=== PATIENT | male | born 1955 | race African-American/Black ===

== ENCOUNTER 2018-02-15 12:01 | Inpatient (IN) | payer OTHER ==
[2018-02-15 13:22] VITALS: BMI 23.3
--- NOTE | 2018-02-15 15:29 | HP ---
CIWA Score - CIWA Score Nausea/Vomitin Muscle Tremors: 3 Anxiety: 3 Agitation: 3 Paroxysmal Sweats: 1-Minimal Palms Moist Orientation: 0-Oriented Tacttile Disturbances: 1-Very Mild Itch/Numbness Auditory Disturbances: 1-Very Mild Visual Disturbances: 1-Very Mild Sensitivity Headache: 2-Mild CIWA-Ar Total Score: 18 Admission ROS BHS - HPI Chief Complaint: i need help to stop drinking alcohol and cocaine Allergies/Adverse Reactions: Allergies Allergy/AdvReac Type Severity Reaction Status Date / Time No Known Allergies Allergy Verified 02/15/18 15:20 History of Present Illness: this 63 years old male with alcohol and cocaine dependence seeking detox, withdrawal symptom,last detox 09/2011 [facility] completed hepatitis c treated hypertension nicotine dependence weight loss anxiety,depression,insomnia longest period of sobriety 10 years - Ebola screening Have you traveled outside of the country in the last 21 days: No Have you had contact with anyone from an Ebola affected area: No Have you been sick,other than usual withdrawal symptoms: No Do you have a fever: No - Review of Systems Constitutional: Loss of Appetite, Malaise, Night Sweats, Changes in sleep, Weakness, Unintentional Wgt. Loss EENT: reports: Nose Congestion Respiratory: reports: No Symptoms reported Cardiac: reports: No Symptoms Reported GI: reports: Nausea, Vomiting, Abdominal cramping : reports: No Symptoms Reported Musculoskeletal: reports: Back Pain, Muscle Pain, Other (s/p left hi replacemeent) Integumentary: reports: Dryness Neuro: reports: Headache, Tremors Endocrine: reports: No Symptoms Reported Hematology: reports: No Symptoms Reported Psychiatric: reports: No Sypmtoms Reported, Judgement Intact, Mood/Affect Appropiate, Anxious, Depressed Patient History - Patient Medical History Hx Anemia: No Hx Asthma: No Hx Chronic Obstructive Pulmonary Disease (COPD): No Hx Cancer: No Hx Cardiac Disorders: No Hx Congestive Heart Failure: No Hx Hypertension: Yes (on med) Hx Hypercholesterolemia: No Hx Pacemaker: No HX Cerebrovascular Accident: No Hx Seizures: No Hx Dementia: No Hx Diabetes: No Hx Gastrointestinal Disorders: No Hx Liver Disease: No Hx Genitourinary Disorders: No Hx Sexually Transmitted Disorders: No Hx Renal Disease (ESRD): No Hx Thyroid Disease: No Hx Human Immunodeficiency Virus (HIV): No (last 2012) Hx Hepatitis C: Yes (treated) Hx Depression: Yes (anxiety) Hx Suicide Attempt: No Hx Bipolar Disorder: No Hx Schizophrenia: No Other Medical History: no suicidal,no homicidal - Patient Surgical History Hx Orthopedic Surgery: Yes (s/p left hip replacement in 2016) Other Surgical History: s/p surgery of right eye 2010 - PPD History Previous Implant?: Yes Documented Results: Negative w/o proof Implanted On Prior [facility] Admission?: No PPD to be Administered?: Yes - Smoking Cessation Smoking history: Current every day smoker Have you smoked in the past 12 months: Yes Aproximately how many cigarettes per day: 5 Cigars Per Day: 0 Hx Chewing Tobacco Use: No Initiated information on smoking cessation: Yes 'Breaking Loose' booklet given: 02/15/18 - Substance & Tx. History Hx Alcohol Use: Yes Hx Substance Use: No Substance Use Type: Alcohol, Cocaine Hx Substance Use Treatment: Yes ([facility] 09/2011) - Substances Abused Alcohol Route: Oral Frequency: Daily Amount used: 2 PINTS RUM Age of first use: 43 Date of Last Use: 02/15/18 Crack Route: Smoking Frequency: Daily Amount used: 3 GRAMS Age of first use: 50 Date of Last Use: 02/14/18 Family Disease History - Family Disease History Family Disease History: Other: Father (alcohol,), Mother (cva ) Admission Physical Exam S - Vital Signs Vital Signs: Vital Signs - 24 hr 02/15/18 13:17 Temperature 97.9 F Pulse Rate 82 Respiratory 20 Rate Blood Pressure 151/104 - Physical General Appearance: Yes: Moderate Distress, Tremorous, Irritable, Sweating, Anxious HEENTM: Yes: Normal ENT Inspection, TRUE, Pharynx Normal Respiratory: Yes: Lungs Clear, Normal Breath Sounds, No Respiratory Distress Neck: Yes: Within Normal Limits, Supple, Trachea in good position Breast: Yes: Within Normal Limits Cardiology: Yes: Regular Rhythm, Regular Rate, S1, S2 Abdominal: Yes: Within Normal Limits, Normal Bowel Sounds, Non Tender, Soft Genitourinary: Yes: Within Normal Limits Back: Yes: Muscle Spasm Musculoskeletal: Yes: Back pain, Muscle Pain Extremities: Yes: Tremors 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 NML intact, Fully Oriented, Alert, Motor Strength 5/5 Integumentary: Yes: Dry Lymphatic: Yes: Within Normal Limits - Diagnostic (1) Alcohol dependence with uncomplicated withdrawal Current Visit: Yes Status: Acute (2) Cocaine dependence Current Visit: Yes Status: Acute (3) Weight loss Current Visit: Yes Status: Acute (4) Anxiety and depression Current Visit: Yes Status: Acute (5) Insomnia Current Visit: Yes Status: Acute (6) Nicotine dependence Current Visit: Yes Status: Acute (7) Status post left hip replacement Current Visit: Yes Status: Acute Cleared for Admission [facility] - Detox or Rehab [facility] Level of Care: Medically Managed Detox Regimen/Protocol: Librium [facility] Breath Alcohol Content Breath Alcohol Content: 0.097 Urine Drug Screen - Results Drug Screen Negative: No Urine Drug Screen Results: THC-Marijuana, TARYN-Cocaine
[2018-02-15] MEDS ORDERED: MAG HYDROX/AL HYDROX/SIMETH 30 ML UNIT-DOSE CUP PO PRN (15:46)
[2018-02-15] MEDS ORDERED: IBUPROFEN 400 MG TABLET (FP) PO PRN (15:46)
[2018-02-15] MEDS ORDERED: MAGNESIUM CITRATE 300 ML BOTTLE PO PRN (15:46)
[2018-02-15] MEDS ORDERED: LOPERAMIDE HCL 2 MG CAPSULE PO PRN (15:46)
[2018-02-15] MEDS ORDERED: MENTHOL/PHENOL 1 EACH UD MM PRN (15:46)
[2018-02-15] MEDS ORDERED: MAGNESIUM HYDROX 2400MG/30ML ORAL SUSPENSION 30 ML CUP PO PRN (15:46)
[2018-02-15] MEDS ORDERED: guaiFENesin/D-METHORPHAN HB 10 ML UNIT-DOSE CUPS PO PRN (15:46)
[2018-02-15] MEDS ORDERED: NICOTINE POLACRILEX 2 MG GUM BUC PRN (15:46)
[2018-02-15] MEDS ORDERED: hydrOXYzine PAMOATE 25 MG CAPSULE (FP) PO PRN (15:46)
[2018-02-15] MEDS ORDERED: P-EPHED 60MG/TRIPROLIDI 2.5MG TABLET PO PRN (15:46)
[2018-02-15] MEDS ORDERED: ACETAMINOPHEN 325 MG TABLET (FP) PO PRN (16:22)
[2018-02-15] MEDS ORDERED: chlordiazePOXIDE HCL 25 MG CAPSULE PO PRN (16:23)
[2018-02-15] MEDS: LISINOPRIL 10 MG TABLET (FP) PO SCH (17:26)
[2018-02-15] MEDS: chlordiazePOXIDE HCL 25 MG CAPSULE PO SCH ×2 (17:26→22:22)
--- NOTE | 2018-02-15 18:07 | CONSULT ---
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 Substance Abuse History: Confirmed by patient in this interview.Details in current [facility] report : Smoking history: Current every day smoker. Have you smoked in the past 12 months: Yes. Aproximately how many cigarettes per day: 5. Cigars Per Day: 0. Hx Chewing Tobacco Use: No. Initiated information on smoking cessation: Yes. 'Breaking Loose' booklet given: 02/15/18. - Substance & Tx. History. Hx Alcohol Use: Yes. Hx Substance Use: No. Substance Use Type : Alcohol, Cocaine. Hx Substance Use Treatment: Yes ([facility] 09/2011). - Substances Abused. Alcohol. Route: Oral. Frequency: Daily. Amount used: 2 PINTS RUM. Age of first use: 43. Date of Last Use: 02/15/18. Crack. Route: Smoking. Frequency: Daily. Amount used: 3 GRAMS. Age of first use: 50. Date of Last Use: 02/14/18 Medical History: Hepatitis C,hypertension,left hip replacement (2015) and a history of eye surgery for retinal detachment (right eye) in 2010. Psychiatric History: Patient denies. Physical/Sexual Abuse/Trauma History: Patient denies. Additional Comment: Urine Drug Screen Results: THC-Marijuana, TARYN-Cocaine.Noted. Mental Status Exam - Mental Status Exam Alert and Oriented to: Time, Place, Person Cognitive Function: Good Patient Appearance: Well Groomed Mood: Hopeful, Euthymic Affect: Appropriate, Normal Range Patient Behavior: Fatigued, Appropriate, Cooperative Speech Pattern: Clear, Appropriate Voice Loudness: Normal Thought Process: Intact, Goal Oriented Thought Disorder: Not Present Hallucinations: Denies Suicidal Ideation: Denies Homicidal Ideation: Denies Insight/Judgement: Fair Sleep: Poorly, Difficulty falling asleep Appetite: Good Muscle strength/Tone: Normal Gait/Station: Normal Psychiatric Findings - Problem List ([place] 1, 2,3) (1) Alcohol dependence with uncomplicated withdrawal Current Visit: Yes Status: Acute (2) Cocaine dependence Current Visit: Yes Status: Acute (3) Insomnia Current Visit: Yes Status: Acute (4) Nicotine dependence Current Visit: Yes Status: Acute - Initial Treatment Plan Initial Treatment Plan: Psychoeducation.Sleep hygiene.Detoxification in progress.Ambien 5 mg po hs prn (patient's request).Patient is made aware of the risk of parasomnias (sleep-walking).Mr Key agrees with this careplan.Observation.
[2018-02-15] MEDS ORDERED: MELATONIN 5 MG TABLETS PO PRN (22:00)
[2018-02-15] MEDS: THIAMINE HCL 100 MG TABLET (FP) PO SCH (22:22)
[2018-02-16] MEDS: chlordiazePOXIDE HCL 25 MG CAPSULE PO SCH ×4 (05:15→22:22)
--- NOTE | 2018-02-16 09:22 | EKG ---
Test Reason : Blood Pressure : / mmHG Vent. Rate : 070 BPM Atrial Rate : 070 BPM P-R Int : 146 ms QRS Dur : 086 ms QT Int : 406 ms P-R-T Axes : 072 041 060 degrees QTc Int : 438 ms NORMAL SINUS RHYTHM POSSIBLE LEFT ATRIAL ENLARGEMENT LEFT VENTRICULAR HYPERTROPHY ABNORMAL ECG NO PREVIOUS ECGS AVAILABLE Confirmed by ANUP ROSA, CLYDE ([id number]) on 02/16/2018 9:22:17 AM Referred By: Confirmed By:CLYDE HEBERT MD
[2018-02-16 10:09] LABS: URINE APPEARANCE CLEAR; URINE BILIRUBIN NEGATIVE (<2.0 mg/dL); URINE COLOR YELLOW; URINE GLUCOSE (UA) NEGATIVE (NEGATIVE); URINE KETONE NEGATIVE (NEGATIVE); URINE LEUK ESTERASE NEGATIVE (NEGATIVE); URINE NITRITE NEGATIVE (NEGATIVE); URINE PROTEIN NEGATIVE (NEGATIVE)
[2018-02-16] MEDS: PRENATAL VITAMINS W/ FOLIC ACID TABLET (FP) PO SCH (10:13)
[2018-02-16] MEDS: LISINOPRIL 10 MG TABLET (FP) PO SCH (10:13)
[2018-02-16 10:16] LABS: HEMATOCRIT 37.7 % (35.4-49); MCH 34.8 pg (25.7-33.7); MCHC 34.6 g/dl (32.0-35.9); MEAN CELL VOLUME 100.6 fl (80-96); MEAN PLT VOLUME 9.2 fl (7.5-11.1); PLATELET COUNT 202 K/MM3 (134-434); RBC 3.74 M/mm3 (4.00-5.60); RDW 13.9 % (11.9-15.9); WHITE BLOOD COUNT 3.6 K/mm3 (4.0-10.0)
[2018-02-16 10:37] LABS: CHLORIDE 105 mmol/L (98-107); POTASSIUM 4.3 mmol/L (3.5-5.1); SODIUM 141 mmol/L (136-145)
[2018-02-16 10:57] LABS: ALBUMIN 3.7 g/dl (3.4-5.0); ALK PHOS 67 U/L (45-117); ANION GAP 8 (8-16); BILIRUBIN,TOTAL 0.8 mg/dL (0.2-1.0); BLOOD UREA NITROGEN 16 mg/dL (7-18); CALCIUM 9.3 mg/dL (8.5-10.1); CO2 28 mmol/L (21-32); CREATININE 1.2 mg/dL (0.7-1.3); GLUCOSE,RANDOM 98 mg/dL (74-106); SGOT/AST 44 U/L (15-37); SGPT/ALT 43 U/L (12-78); TOT PROT 7.2 g/dl (6.4-8.2)
--- NOTE | 2018-02-16 16:06 | PN ---
[facility] CIWA - CIWA Score Nausea/Vomitin-No Nausea/No Vomiting Muscle Tremors: 4-Moderate,w/Arms Extend Anxiety: 4-Mod. Anxious/Guarded Agitation: 3 Paroxysmal Sweats: 3 Orientation: 0-Oriented Tacttile Disturbances: 2-Mild Itch/Numbness/Burn Auditory Disturbances: 2-Mild Harshness/Frighten Visual Disturbances: 0-None Headache: 0-None Present CIWA-Ar Total Score: 18 S Progress Note (SOAP) Subjective: Fatigue, Sweating, Tremors, Constipation. Objective: PATIENT A & O X 3, OBSERVED AMBULATING ON UNIT. NO ACUTE DISTRESS. 02/16/18 16:05 Vital Signs Temperature 97.4 F L 02/16/18 10:43 Pulse Rate 93 H 02/16/18 10:43 Respiratory Rate 18 02/16/18 10:43 Blood Pressure 130/80 02/16/18 10:43 O2 Sat by Pulse Oximetry (%) Laboratory Tests 02/16/18 02/16/18 02/16/18 08:00 08:00 08:00 WBC 3.6 L RBC 3.74 L Hgb 13.0 Hct 37.7 MCV 100.6 H MCH 34.8 H MCHC 34.6 RDW 13.9 Plt Count 202 MPV 9.2 Sodium 141 Potassium 4.3 Chloride 105 Carbon Dioxide 28 Anion Gap 8 BUN 16 Creatinine 1.2 Creat Clearance w eGFR > 60 Random Glucose 98 Calcium 9.3 Total Bilirubin 0.8 AST 44 H ALT 43 Alkaline Phosphatase 67 Total Protein 7.2 Albumin 3.7 Urine Color Urine Appearance Urine pH Ur Specific [place] Urine Protein Urine Glucose (UA) Urine Ketones Urine Blood Urine Nitrite Urine Bilirubin Urine Urobilinogen Ur Leukocyte Esterase RPR Titer HIV 1&2 Antibody Screen Negative HIV P24 Antigen Negative 02/16/18 02/16/18 08:00 09:00 WBC RBC Hgb Hct MCV MCH MCHC RDW Plt Count MPV Sodium Potassium Chloride Carbon Dioxide Anion Gap BUN Creatinine Creat Clearance w eGFR Random Glucose Calcium Total Bilirubin AST ALT Alkaline Phosphatase Total Protein Albumin Urine Color Yellow Urine Appearance Clear Urine pH 6.0 Ur Specific [place] 1.012 Urine Protein Negative Urine Glucose (UA) Negative Urine Ketones Negative Urine Blood Negative Urine Nitrite Negative Urine Bilirubin Negative Urine Urobilinogen 2.0 Ur Leukocyte Esterase Negative RPR Titer Nonreactive HIV 1&2 Antibody Screen HIV P24 Antigen LABS NOTED. Assessment: 02/16/18 16:05 WITHDRAWAL SYMPTOMS. Plan: CONTINUE DETOX. INCREASE DAILY PO FLUID INTAKE.
[2018-02-16] MEDS: THIAMINE HCL 100 MG TABLET (FP) PO SCH (22:22)
[2018-02-17] MEDS: chlordiazePOXIDE HCL 25 MG CAPSULE PO SCH ×2 (05:25→10:18)
[2018-02-17] MEDS: PRENATAL VITAMINS W/ FOLIC ACID TABLET (FP) PO SCH (10:18)
[2018-02-17] MEDS: LISINOPRIL 10 MG TABLET (FP) PO SCH (10:18)
--- NOTE | 2018-02-17 13:01 | PN ---
S CIWA - CIWA Score Nausea/Vomitin-No Nausea/No Vomiting Muscle Tremors: 3 Anxiety: 4-Mod. Anxious/Guarded Agitation: 3 Paroxysmal Sweats: 1-Minimal Palms Moist Orientation: 0-Oriented Tacttile Disturbances: 0-None Auditory Disturbances: 0-None Visual Disturbances: 0-None Headache: 0-None Present CIWA-Ar Total Score: 11 BHS Progress Note (SOAP) Subjective: REPORTS DETOX PROCEEDING WELL. ALERT O X 3. NAD. Objective: 02/17/18 13:01 Vital Signs 02/17/18 02/17/18 06:13 10:30 Temperature 96 F L 96.8 F L Pulse Rate 51 L 56 L Respiratory 18 18 Rate Blood Pressure 158/95 161/57 Laboratory Tests 02/16/18 02/16/18 02/16/18 08:00 08:00 08:00 WBC 3.6 L RBC 3.74 L Hgb 13.0 Hct 37.7 MCV 100.6 H MCH 34.8 H MCHC 34.6 RDW 13.9 Plt Count 202 MPV 9.2 Sodium 141 Potassium 4.3 Chloride 105 Carbon Dioxide 28 Anion Gap 8 BUN 16 Creatinine 1.2 Creat Clearance w eGFR > 60 Random Glucose 98 Calcium 9.3 Total Bilirubin 0.8 AST 44 H ALT 43 Alkaline Phosphatase 67 Total Protein 7.2 Albumin 3.7 Urine Color Urine Appearance Urine pH Ur Specific [place] Urine Protein Urine Glucose (UA) Urine Ketones Urine Blood Urine Nitrite Urine Bilirubin Urine Urobilinogen Ur Leukocyte Esterase RPR Titer HIV 1&2 Antibody Screen Negative HIV P24 Antigen Negative 02/16/18 02/16/18 08:00 09:00 WBC RBC Hgb Hct MCV MCH MCHC RDW Plt Count MPV Sodium Potassium Chloride Carbon Dioxide Anion Gap BUN Creatinine Creat Clearance w eGFR Random Glucose Calcium Total Bilirubin AST ALT Alkaline Phosphatase Total Protein Albumin Urine Color Yellow Urine Appearance Clear Urine pH 6.0 Ur Specific [place] 1.012 Urine Protein Negative Urine Glucose (UA) Negative Urine Ketones Negative Urine Blood Negative Urine Nitrite Negative Urine Bilirubin Negative Urine Urobilinogen 2.0 Ur Leukocyte Esterase Negative RPR Titer Nonreactive HIV 1&2 Antibody Screen HIV P24 Antigen Assessment: 02/17/18 13:01 WITHDRAWAL SX Plan: CONTINUE DETOX
[2018-02-17] MEDS: chlordiazePOXIDE 5 MG CAPSULE PO SCH ×2 (17:43→22:10)
[2018-02-17] MEDS: THIAMINE HCL 100 MG TABLET (FP) PO SCH (22:10)
[2018-02-18] MEDS: chlordiazePOXIDE 5 MG CAPSULE PO SCH ×2 (04:53→10:10)
[2018-02-18] MEDS: PRENATAL VITAMINS W/ FOLIC ACID TABLET (FP) PO SCH (10:10)
[2018-02-18] MEDS: LISINOPRIL 10 MG TABLET (FP) PO SCH (10:11)
--- NOTE | 2018-02-18 12:14 | PN ---
BHS Progress Note (SOAP) Subjective: PT REPORTS DETOX IS PROCEEDING WELL. ALERT O X 3. OOB IN NAD. Objective: 02/18/18 12:13 Vital Signs 02/18/18 02/18/18 06:06 09:02 Temperature 95.2 F L 95.1 F L Pulse Rate 62 73 Respiratory 18 18 Rate Blood Pressure 142/91 152/89 Laboratory Tests 02/16/18 02/16/18 02/16/18 08:00 08:00 08:00 WBC 3.6 L RBC 3.74 L Hgb 13.0 Hct 37.7 MCV 100.6 H MCH 34.8 H MCHC 34.6 RDW 13.9 Plt Count 202 MPV 9.2 Sodium 141 Potassium 4.3 Chloride 105 Carbon Dioxide 28 Anion Gap 8 BUN 16 Creatinine 1.2 Creat Clearance w eGFR > 60 Random Glucose 98 Calcium 9.3 Total Bilirubin 0.8 AST 44 H ALT 43 Alkaline Phosphatase 67 Total Protein 7.2 Albumin 3.7 Urine Color Urine Appearance Urine pH Ur Specific [place] Urine Protein Urine Glucose (UA) Urine Ketones Urine Blood Urine Nitrite Urine Bilirubin Urine Urobilinogen Ur Leukocyte Esterase RPR Titer HIV 1&2 Antibody Screen Negative HIV P24 Antigen Negative 02/16/18 02/16/18 08:00 09:00 WBC RBC Hgb Hct MCV MCH MCHC RDW Plt Count MPV Sodium Potassium Chloride Carbon Dioxide Anion Gap BUN Creatinine Creat Clearance w eGFR Random Glucose Calcium Total Bilirubin AST ALT Alkaline Phosphatase Total Protein Albumin Urine Color Yellow Urine Appearance Clear Urine pH 6.0 Ur Specific [place] 1.012 Urine Protein Negative Urine Glucose (UA) Negative Urine Ketones Negative Urine Blood Negative Urine Nitrite Negative Urine Bilirubin Negative Urine Urobilinogen 2.0 Ur Leukocyte Esterase Negative RPR Titer Nonreactive HIV 1&2 Antibody Screen HIV P24 Antigen Assessment: 02/18/18 12:13 WITHDRAWAL SX RESOLVING Plan: CONTINUE DETOX
[2018-02-18] MEDS: chlordiazePOXIDE HCL 10 MG CAPSULE PO SCH ×2 (17:49→22:15)
[2018-02-18] MEDS ORDERED: LISINOPRIL 10 MG TABLET (FP) PO SCH (22:00)
[2018-02-18] MEDS: THIAMINE HCL 100 MG TABLET (FP) PO SCH (22:15)
[2018-02-19] MEDS: chlordiazePOXIDE HCL 10 MG CAPSULE PO SCH (05:55)
[2018-02-19 06:12] VITALS: BP 107/79; PULSE 70; TEMP 97.2
--- NOTE | 2018-02-19 09:50 | PN ---
BHS Progress Note (SOAP) Subjective: DETOX COMPLETED. ALERT O X 3. NAD. PT STATES HE IS GOING BACK TO HIS HOME. Objective: 02/19/18 09:50 Vital Signs 02/19/18 06:12 Temperature 97.2 F L Pulse Rate 70 Respiratory 18 Rate Blood Pressure 107/79 Laboratory Tests 02/16/18 02/16/18 02/16/18 08:00 08:00 08:00 WBC 3.6 L RBC 3.74 L Hgb 13.0 Hct 37.7 MCV 100.6 H MCH 34.8 H MCHC 34.6 RDW 13.9 Plt Count 202 MPV 9.2 Sodium 141 Potassium 4.3 Chloride 105 Carbon Dioxide 28 Anion Gap 8 BUN 16 Creatinine 1.2 Creat Clearance w eGFR > 60 Random Glucose 98 Calcium 9.3 Total Bilirubin 0.8 AST 44 H ALT 43 Alkaline Phosphatase 67 Total Protein 7.2 Albumin 3.7 Urine Color Urine Appearance Urine pH Ur Specific [place] Urine Protein Urine Glucose (UA) Urine Ketones Urine Blood Urine Nitrite Urine Bilirubin Urine Urobilinogen Ur Leukocyte Esterase RPR Titer HIV 1&2 Antibody Screen Negative HIV P24 Antigen Negative 02/16/18 02/16/18 08:00 09:00 WBC RBC Hgb Hct MCV MCH MCHC RDW Plt Count MPV Sodium Potassium Chloride Carbon Dioxide Anion Gap BUN Creatinine Creat Clearance w eGFR Random Glucose Calcium Total Bilirubin AST ALT Alkaline Phosphatase Total Protein Albumin Urine Color Yellow Urine Appearance Clear Urine pH 6.0 Ur Specific [place] 1.012 Urine Protein Negative Urine Glucose (UA) Negative Urine Ketones Negative Urine Blood Negative Urine Nitrite Negative Urine Bilirubin Negative Urine Urobilinogen 2.0 Ur Leukocyte Esterase Negative RPR Titer Nonreactive HIV 1&2 Antibody Screen HIV P24 Antigen Assessment: 02/19/18 09:50 MEDICALLY STABLE Plan: D/C PT TODAY FOLLOW UP WITH PMD DR. MERARY LEE FOR MEDICAL MANAGEMENT NEEDED.
--- NOTE | 2018-02-19 16:02 | DS ---
[facility] Detox Discharge Summary Admission Date: 02/15/18 Discharge Date: 02/19/18 - History Present History: Alcohol Dependence, Cocaine Dependence Additional Comments: DETOX COMPLETED. ALERT O X 3. NAD. PT REPORTS HIS PMD IS DR. MERARY LEE WHO HE WILL F/U WITH FOR MEDICAL MANAGEMENT NEEDED. PT STATES HE HAS OWN MEDS AT HOME. Pertinent Past History: PLEASED SEE DX BELOW - Physical Exam Results Vital Signs: Vital Signs Temperature 97.2 F L 02/19/18 06:12 Pulse Rate 70 02/19/18 06:12 Respiratory Rate 02/19/18 06:12 Blood Pressure 107/79 02/19/18 06:12 O2 Sat by Pulse Oximetry (%) Pertinent Admission Physical Exam Findings: WITHDRAWAL SX Laboratory Tests 02/16/18 02/16/18 02/16/18 08:00 08:00 08:00 WBC 3.6 L RBC 3.74 L Hgb 13.0 Hct 37.7 MCV 100.6 H MCH 34.8 H MCHC 34.6 RDW 13.9 Plt Count 202 MPV 9.2 Sodium 141 Potassium 4.3 Chloride 105 Carbon Dioxide 28 Anion Gap 8 BUN 16 Creatinine 1.2 Creat Clearance w eGFR > 60 Random Glucose 98 Calcium 9.3 Total Bilirubin 0.8 AST 44 H ALT 43 Alkaline Phosphatase 67 Total Protein 7.2 Albumin 3.7 Urine Color Urine Appearance Urine pH Ur Specific [place] Urine Protein Urine Glucose (UA) Urine Ketones Urine Blood Urine Nitrite Urine Bilirubin Urine Urobilinogen Ur Leukocyte Esterase RPR Titer HIV 1&2 Antibody Screen Negative HIV P24 Antigen Negative 02/16/18 02/16/18 08:00 09:00 WBC RBC Hgb Hct MCV MCH MCHC RDW Plt Count MPV Sodium Potassium Chloride Carbon Dioxide Anion Gap BUN Creatinine Creat Clearance w eGFR Random Glucose Calcium Total Bilirubin AST ALT Alkaline Phosphatase Total Protein Albumin Urine Color Yellow Urine Appearance Clear Urine pH 6.0 Ur Specific [place] 1.012 Urine Protein Negative Urine Glucose (UA) Negative Urine Ketones Negative Urine Blood Negative Urine Nitrite Negative Urine Bilirubin Negative Urine Urobilinogen 2.0 Ur Leukocyte Esterase Negative RPR Titer Nonreactive HIV 1&2 Antibody Screen HIV P24 Antigen - Treatment Hospital Course: Detox Protocol Followed, Detoxed Safely, Responded well, Discharged Condition Good - Medication Discharge Medications: Ambulatory Orders Lisinopril 20 mg PO DAILY 02/15/18 - Diagnosis (1) Alcohol dependence with uncomplicated withdrawal Status: Acute (2) Cocaine dependence Status: Acute Qualifiers: Substance use status: uncomplicated Qualified Code(s): F14.20 - Cocaine dependence, uncomplicated (3) Nicotine dependence Status: Acute Qualifiers: Nicotine product type: cigarettes Substance use status: in withdrawal Qualified Code(s): F17.213 - Nicotine dependence, cigarettes, with withdrawal (4) Status post left hip replacement Status: Acute (5) Weight loss Status: Acute - AMA Did Patient Leave Against Medical Advice: No
== END 2018-02-19 08:35 | disposition home or self-care (01) | DRG 897 ==
LOC: YASAS 12:01 → Y3N 14:45
PROVIDERS: ADMIT Internal Medicine; ATTEND Internal Medicine
PROC: HZ2ZZZZ Detoxification Services for Substance Abuse Treatment (ICD-10-PCS; principal; 2018-02-15)
DX: F10.230 Alcohol dependence with withdrawal, uncomplicated (principal); F14.20 Cocaine dependence, uncomplicated; F17.213 Nicotine dependence, cigarettes, with withdrawal; F41.8 Other specified anxiety disorders; I10 Essential (primary) hypertension; G47.00 Insomnia, unspecified; Z96.642 Presence of left artificial hip joint; Z87.898 Personal history of other specified conditions
CPT/HCPCS: 36415; 80053; 81003; 85027; 86593; 87389; 93005; 93010

== ENCOUNTER 2018-11-03 09:25 | Inpatient (IN) | payer OTHER ==
[2018-11-03 09:54] VITALS: BMI 23.8
--- NOTE | 2018-11-03 10:04 | HP ---
CIWA Score Nausea/Vomitin-Mild Nausea/No Vomiting Muscle Tremors: 3 Anxiety: 3 Agitation: 2 Paroxysmal Sweats: 2 Orientation: 2-Disoriented Date<2 days Tacttile Disturbances: 0-None Auditory Disturbances: 1-Very Mild Visual Disturbances: 1-Very Mild Sensitivity Headache: 2-Mild CIWA-Ar Total Score: 17 - Admission Criteria OASAS Guidelines: Admission for Medically Managed Detox: Requires at least one of the followin. CIWA greater than 12 2. Seizures within the past 24 hours 3. Delirium tremens within the past 24 hours 4. Hallucinations within the past 24 hours 5. Acute intervention needed for co occurring medical disorder 6. Acute intervention needed for co occurring psychiatric disorder 7. Severe withdrawal that cannot be handled at a lower level of care (continued vomiting, continued diarrhea, abnormal vital signs) requiring intravenous medication and/or fluids 8. Admission ROS S - [facility] Chief Complaint: WITHDRAWAL SYMPTOMS Allergies/Adverse Reactions: Allergies Allergy/AdvReac Type Severity Reaction Status Date / Time No Known Allergies Allergy Verified 11/03/18 09:59 History of Present Illness: 63 Y.O. MAN WITH AN EXTENSIVE HISTORY OF ALCOHOL DEPENDENCE IS HERE SEEKING DETOX. HE LAST COMPLETED DETOX HERE FROM 02/15/18-02/19/18. DOES NOT HAVE A SIGNIFICANT PERIOD OF SOBRIETY. Exam Limitations: No Limitations - Ebola screening Have you traveled outside of the country in the last 21 days: No (N) Have you had contact with anyone from an Ebola affected area: No Have you been sick,other than usual withdrawal symptoms: No Do you have a fever: No - Review of Systems Constitutional: Loss of Appetite, Unintentional Wgt. Loss EENT: reports: Blurred Vision Respiratory: reports: No Symptoms reported Cardiac: reports: Lightheadedness GI: reports: No Symptoms Reported : reports: No Symptoms Reported Musculoskeletal: reports: Joint Pain Integumentary: reports: No Symptoms Reported Neuro: reports: Tremors Endocrine: reports: No Symptoms Reported Hematology: reports: No Symptoms Reported Psychiatric: reports: Mood/Affect Appropiate Other Systems: Reviewed and Negative Patient History - Patient Medical History Hx Anemia: No Hx Asthma: No Hx Chronic Obstructive Pulmonary Disease (COPD): No Hx Cancer: No Hx Cardiac Disorders: No Hx Congestive Heart Failure: No Hx Hypertension: Yes (TAKES LISINOPRIL ) Hx Hypercholesterolemia: Yes (NOT ON MEDICATION ) Hx Pacemaker: No HX Cerebrovascular Accident: No Hx Seizures: No Hx Dementia: No Hx Diabetes: No Hx Gastrointestinal Disorders: No Hx Liver Disease: No Hx Genitourinary Disorders: No Hx Sexually Transmitted Disorders: No Hx Renal Disease (ESRD): No Hx Thyroid Disease: No Hx Human Immunodeficiency Virus (HIV): No (last 2012) Hx Hepatitis C: Yes (DID NOT COMPLETE [place] ) Hx Depression: Yes (ANXIETY ) Hx Suicide Attempt: No Hx Bipolar Disorder: No Hx Schizophrenia: No - Patient Surgical History Past Surgical History: Yes Hx Orthopedic Surgery: Yes (s/p left hip replacement in 2015) Other Surgical History: s/p surgery of right eye 2010 - PPD History Previous Implant?: Yes Documented Results: Negative w/proof Implanted On Prior R Admission?: Yes Date: 02/17/18 Results: 0 PPD to be Administered?: No - Reproductive History Patient is a Female of Child Bearing Age (11 -55 yrs old): No - Smoking Cessation Smoking history: Current every day smoker Have you smoked in the past 12 months: Yes Aproximately how many cigarettes per day: 6 Cigars Per Day: 0 Hx Chewing Tobacco Use: No Initiated information on smoking cessation: Yes 'Breaking Loose' booklet given: 11/03/18 - Substance & Tx. History Hx Alcohol Use: Yes Hx Substance Use: Yes Substance Use Type: Alcohol, Cocaine Hx Substance Use Treatment: Yes (DETOX: 02/2019) - Substances Abused Alcohol Route: Oral Frequency: Daily Amount used: 1 PINT BACARDI Age of first use: 15 Date of Last Use: 11/03/18 Cocaine Route: Smoking Frequency: Daily Amount used: $200 Age of first use: 30 Date of Last Use: 11/03/18 Family Disease History - Family Disease History Family Disease History: Other: Father (alcohol,), Mother (cva ) Admission Physical Exam [facility] - Vital Signs Vital Signs: Vital Signs - 24 hr 11/03/18 09:44 Temperature 97.9 F Pulse Rate 95 H Respiratory 18 Rate Blood Pressure 150/103 H - Physical General Appearance: Yes: Disheveled HEENTM: Yes: Normocephalic, Normal Voice, TRUE Respiratory: Yes: Chest Non-Tender, Lungs Clear, Normal Breath Sounds, No Respiratory Distress, No Accessory Muscle Use Neck: Yes: No masses,lesions,Nodules Breast: Yes: Within Normal Limits, Axillae without masses, Breasts Symetrical, No Discharge Cardiology: Yes: Regular Rhythm, Regular Rate Abdominal: Yes: Normal Bowel Sounds, Non Tender, Flat Genitourinary: Yes: Other Back: Yes: Normal Inspection Musculoskeletal: Yes: full range of Motion, Gait Steady, Pelvis Stable Extremities: Yes: Normal Capillary Refill, Normal Inspection, Normal Range of Motion, Non-Tender Neurological: Yes: Alert, Normal Mood/Affect, Normal Response Integumentary: Yes: Normal Color, Dry, Warm Lymphatic: Yes: Within Normal Limits - Diagnostic (1) Alcohol dependence with uncomplicated withdrawal Current Visit: Yes Status: Chronic (2) Cocaine dependence Current Visit: Yes Status: Chronic Qualifiers: Substance use status: uncomplicated Qualified Code(s): F14.20 - Cocaine dependence, uncomplicated (3) Nicotine dependence Current Visit: Yes Status: Chronic Qualifiers: Nicotine product type: cigarettes Substance use status: in withdrawal Qualified Code(s): F17.213 - Nicotine dependence, cigarettes, with withdrawal (4) Status post left hip replacement Current Visit: No Status: Acute (5) Weight loss Current Visit: Yes Status: Acute (6) Hypolipidemia Current Visit: Yes Status: Chronic (7) Hepatitis C Current Visit: Yes Status: Chronic Cleared for Admission [facility] - Detox or Rehab [facility] Level of Care: Medically Managed Detox Regimen/Protocol: Librium [facility] Breath Alcohol Content Breath Alcohol Content: 0.50 Urine Drug Screen - Results Drug Screen Negative: No Urine Drug Screen Results: THC-Marijuana, TARYN-Cocaine
[2018-11-03] MEDS ORDERED: hydrOXYzine PAMOATE 50 MG CAPSULE (FP) PO PRN (10:14)
[2018-11-03] MEDS ORDERED: chlordiazePOXIDE HCL 25 MG CAPSULE PO PRN (10:14)
[2018-11-03] MEDS ORDERED: MAGNESIUM HYDROX 2400MG/30ML ORAL SUSPENSION 30 ML CUP PO PRN (10:14)
[2018-11-03] MEDS ORDERED: LOPERAMIDE HCL 2 MG CAPSULE PO PRN (10:14)
[2018-11-03] MEDS ORDERED: MENTHOL/PHENOL 1 EACH UD MM PRN (10:14)
[2018-11-03] MEDS ORDERED: guaiFENesin/D-METHORPHAN HB 10 ML UNIT-DOSE CUPS PO PRN (10:14)
[2018-11-03] MEDS ORDERED: ACETAMINOPHEN 325 MG TABLET (FP) PO PRN (10:14)
[2018-11-03] MEDS ORDERED: P-EPHED 60MG/TRIPROLIDI 2.5MG TABLET PO PRN (10:14)
[2018-11-03] MEDS ORDERED: MAG HYDROX/AL HYDROX/SIMETH 30 ML UNIT-DOSE CUP PO PRN (10:14)
[2018-11-03] MEDS ORDERED: IBUPROFEN 400 MG TABLET (FP) PO PRN (10:14)
[2018-11-03] MEDS ORDERED: NICOTINE POLACRILEX 2 MG GUM BUC PRN (10:14)
[2018-11-03] MEDS ORDERED: chlordiazePOXIDE HCL 25 MG CAPSULE PO ONE (10:14)
[2018-11-03] MEDS ORDERED: MAGNESIUM CITRATE 300 ML BOTTLE PO PRN (10:14)
[2018-11-03] MEDS: chlordiazePOXIDE HCL 25 MG CAPSULE PO SCH ×3 (12:37→22:42)
[2018-11-03] MEDS: HYDROCHLOROTHIAZIDE 12.5 MG CAPSULE (FP) PO SCH (12:37)
[2018-11-03] MEDS: THIAMINE HCL 100 MG TABLET (FP) PO SCH (22:42)
[2018-11-04] MEDS: chlordiazePOXIDE HCL 25 MG CAPSULE PO SCH ×4 (06:11→22:16)
[2018-11-04 09:47] LABS: HEMATOCRIT 36.3 % (35.4-49); HEMOGLOBIN 12.8 GM/dL (11.7-16.9); MCH 35.4 pg (25.7-33.7); MCHC 35.4 g/dl (32.0-35.9); MEAN CELL VOLUME 100.2 fl (80-96); MEAN PLT VOLUME 9.2 fl (7.5-11.1); PLATELET COUNT 191 K/MM3 (134-434); RBC 3.62 M/mm3 (4.00-5.60); RDW 14.6 % (11.9-15.9); WHITE BLOOD COUNT 3.1 K/mm3 (4.0-10.0)
[2018-11-04] MEDS ORDERED: LISINOPRIL 20 MG TABLET (FP) PO SCH (10:00)
[2018-11-04 10:07] LABS: ALBUMIN 3.7 g/dl (3.4-5.0); ALK PHOS 70 U/L (45-117); ANION GAP 8 MMOL/L (8-16); BILIRUBIN,TOTAL 0.7 mg/dL (0.2-1); BLOOD UREA NITROGEN 16 mg/dL (7-18); CALCIUM 9.2 mg/dL (8.5-10.1); CHLORIDE 105 mmol/L (98-107); CO2 27 mmol/L (21-32); CREATININE 1.2 mg/dL (0.55-1.3); GLUCOSE,RANDOM 135 mg/dL (74-106); POTASSIUM 3.6 mmol/L (3.5-5.1); SGOT/AST 40 U/L (15-37); SGPT/ALT 48 U/L (13-61); SODIUM 140 mmol/L (136-145); TOT PROT 7.2 g/dl (6.4-8.2)
[2018-11-04] MEDS: PRENATAL VITAMINS W/ FOLIC ACID TABLET (FP) PO SCH (10:23)
[2018-11-04] MEDS: HYDROCHLOROTHIAZIDE 12.5 MG CAPSULE (FP) PO SCH (10:23)
[2018-11-04] MEDS: LISINOPRIL 20 MG TABLET (FP) PO SCH (10:23)
[2018-11-04] MEDS: NICOTINE 14 MG/24 HOURS TOPICAL PATCH TD SCH (10:24)
--- NOTE | 2018-11-04 10:50 | PN ---
[facility] CIWA - CIWA Score Nausea/Vomitin-Mild Nausea/No Vomiting Muscle Tremors: 4-Moderate,w/Arms Extend Anxiety: 3 Agitation: 3 Paroxysmal Sweats: 1-Minimal Palms Moist Orientation: 1-Uncertain about Date Tacttile Disturbances: 0-None Auditory Disturbances: 0-None Visual Disturbances: 0-None Headache: 1-Very Mild CIWA-Ar Total Score: 14 S Progress Note (SOAP) Subjective: tremor sweating trouble sleep at night Objective: 11/04/18 10:50 Vital Signs Temperature 98.1 F 11/04/18 09:27 Pulse Rate 70 11/04/18 09:27 Respiratory Rate 16 11/04/18 09:27 Blood Pressure 116/72 11/04/18 09:27 O2 Sat by Pulse Oximetry (%) Laboratory Last Values WBC 3.1 K/mm3 (4.0-10.0) L 11/04/18 07:00 RBC 3.62 M/mm3 (4.00-5.60) L 11/04/18 07:00 Hgb 12.8 GM/dL (11.7-16.9) 11/04/18 07:00 Hct 36.3 % (35.4-49) 11/04/18 07:00 MCV 100.2 fl (80-96) H 11/04/18 07:00 MCH 35.4 pg (25.7-33.7) H 11/04/18 07:00 MCHC 35.4 g/dl (32.0-35.9) 11/04/18 07:00 RDW 14.6 % (11.9-15.9) 11/04/18 07:00 Plt Count 191 K/MM3 (134-434) 11/04/18 07:00 MPV 9.2 fl (7.5-11.1) 11/04/18 07:00 Sodium 140 mmol/L (136-145) 11/04/18 07:00 Potassium 3.6 mmol/L (3.5-5.1) 11/04/18 07:00 Chloride 105 mmol/L (98-107) 11/04/18 07:00 Carbon Dioxide 27 mmol/L (21-32) 11/04/18 07:00 Anion Gap 8 MMOL/L (8-16) 11/04/18 07:00 BUN 16 mg/dL (7-18) 11/04/18 07:00 Creatinine 1.2 mg/dL (0.55-1.3) 11/04/18 07:00 Creat Clearance w eGFR > 60 (>60) 11/04/18 07:00 Random Glucose 135 mg/dL (74-106) H 11/04/18 07:00 Calcium 9.2 mg/dL (8.5-10.1) 11/04/18 07:00 Total Bilirubin 0.7 mg/dL (0.2-1) 11/04/18 07:00 AST 40 U/L (15-37) H 11/04/18 07:00 ALT 48 U/L (13-61) 11/04/18 07:00 Alkaline Phosphatase 70 U/L (45-117) 11/04/18 07:00 Total Protein 7.2 g/dl (6.4-8.2) 11/04/18 07:00 Albumin 3.7 g/dl (3.4-5.0) 11/04/18 07:00 lab noted Assessment: 11/04/18 10:51 withdrawal sx Plan: continue detox
[2018-11-04] MEDS: THIAMINE HCL 100 MG TABLET (FP) PO SCH (22:16)
[2018-11-04] MEDS: MELATONIN 5 MG TABLETS PO PRN (22:17)
[2018-11-05] MEDS: chlordiazePOXIDE HCL 25 MG CAPSULE PO SCH (05:48)
[2018-11-05] MEDS: HYDROCHLOROTHIAZIDE 12.5 MG CAPSULE (FP) PO SCH (10:22)
[2018-11-05] MEDS: PRENATAL VITAMINS W/ FOLIC ACID TABLET (FP) PO SCH (10:22)
[2018-11-05] MEDS: LISINOPRIL 20 MG TABLET (FP) PO SCH (10:22)
[2018-11-05] MEDS: chlordiazePOXIDE 5 MG CAPSULE PO SCH ×3 (10:22→22:38)
[2018-11-05] MEDS: NICOTINE 14 MG/24 HOURS TOPICAL PATCH TD SCH (10:22)
--- NOTE | 2018-11-05 12:19 | PN ---
S CIWA - CIWA Score Nausea/Vomitin-Mild Nausea/No Vomiting Muscle Tremors: 3 Anxiety: 3 Agitation: 2 Paroxysmal Sweats: 1-Minimal Palms Moist Orientation: 0-Oriented Tacttile Disturbances: 0-None Auditory Disturbances: 0-None Visual Disturbances: 0-None Headache: 2-Mild CIWA-Ar Total Score: 12 S Progress Note (SOAP) Subjective: c/o tremor and sweating otherwise feeling ok social with peers in day room Objective: 11/05/18 12:17 Vital Signs Temperature 97.0 F L 11/05/18 09:10 Pulse Rate 70 11/05/18 09:10 Respiratory Rate 18 11/05/18 09:10 Blood Pressure 121/85 11/05/18 09:10 O2 Sat by Pulse Oximetry (%) Laboratory Last Values WBC 3.1 K/mm3 (4.0-10.0) L 11/04/18 07:00 RBC 3.62 M/mm3 (4.00-5.60) L 11/04/18 07:00 Hgb 12.8 GM/dL (11.7-16.9) 11/04/18 07:00 Hct 36.3 % (35.4-49) 11/04/18 07:00 MCV 100.2 fl (80-96) H 11/04/18 07:00 MCH 35.4 pg (25.7-33.7) H 11/04/18 07:00 MCHC 35.4 g/dl (32.0-35.9) 11/04/18 07:00 RDW 14.6 % (11.9-15.9) 11/04/18 07:00 Plt Count 191 K/MM3 (134-434) 11/04/18 07:00 MPV 9.2 fl (7.5-11.1) 11/04/18 07:00 Sodium 140 mmol/L (136-145) 11/04/18 07:00 Potassium 3.6 mmol/L (3.5-5.1) 11/04/18 07:00 Chloride 105 mmol/L (98-107) 11/04/18 07:00 Carbon Dioxide 27 mmol/L (21-32) 11/04/18 07:00 Anion Gap 8 MMOL/L (8-16) 11/04/18 07:00 BUN 16 mg/dL (7-18) 11/04/18 07:00 Creatinine 1.2 mg/dL (0.55-1.3) 11/04/18 07:00 Creat Clearance w eGFR > 60 (>60) 11/04/18 07:00 Random Glucose 135 mg/dL (74-106) H 11/04/18 07:00 Calcium 9.2 mg/dL (8.5-10.1) 11/04/18 07:00 Total Bilirubin 0.7 mg/dL (0.2-1) 11/04/18 07:00 AST 40 U/L (15-37) H 11/04/18 07:00 ALT 48 U/L (13-61) 11/04/18 07:00 Alkaline Phosphatase 70 U/L (45-117) 11/04/18 07:00 Total Protein 7.2 g/dl (6.4-8.2) 11/04/18 07:00 Albumin 3.7 g/dl (3.4-5.0) 11/04/18 07:00 RPR Titer Nonreactive (NONREACTIVE) 11/04/18 07:00 HIV 1&2 Antibody Screen Negative 11/04/18 07:00 HIV P24 Antigen Negative 11/04/18 07:00 lab noted Assessment: 11/05/18 12:18 withdrawal sx Plan: continue detox
[2018-11-05] MEDS: THIAMINE HCL 100 MG TABLET (FP) PO SCH (22:38)
[2018-11-06] MEDS: chlordiazePOXIDE 5 MG CAPSULE PO SCH (05:27)
[2018-11-06] MEDS: LISINOPRIL 20 MG TABLET (FP) PO SCH (09:25)
[2018-11-06] MEDS: NICOTINE 14 MG/24 HOURS TOPICAL PATCH TD SCH (09:25)
[2018-11-06] MEDS: HYDROCHLOROTHIAZIDE 12.5 MG CAPSULE (FP) PO SCH (09:25)
[2018-11-06] MEDS: PRENATAL VITAMINS W/ FOLIC ACID TABLET (FP) PO SCH (09:25)
[2018-11-06] MEDS: chlordiazePOXIDE HCL 10 MG CAPSULE PO SCH ×3 (10:24→22:06)
--- NOTE | 2018-11-06 14:13 | PN ---
[facility] Progress Note (SOAP) Subjective: feeling better mild tremor less sweating sleep better at night Objective: 11/06/18 14:12 Vital Signs Temperature 97.5 F L 11/06/18 13:38 Pulse Rate 81 11/06/18 13:38 Respiratory Rate 18 11/06/18 13:38 Blood Pressure 119/76 11/06/18 13:38 O2 Sat by Pulse Oximetry (%) Laboratory Last Values WBC 3.1 K/mm3 (4.0-10.0) L 11/04/18 07:00 RBC 3.62 M/mm3 (4.00-5.60) L 11/04/18 07:00 Hgb 12.8 GM/dL (11.7-16.9) 11/04/18 07:00 Hct 36.3 % (35.4-49) 11/04/18 07:00 MCV 100.2 fl (80-96) H 11/04/18 07:00 MCH 35.4 pg (25.7-33.7) H 11/04/18 07:00 MCHC 35.4 g/dl (32.0-35.9) 11/04/18 07:00 RDW 14.6 % (11.9-15.9) 11/04/18 07:00 Plt Count 191 K/MM3 (134-434) 11/04/18 07:00 MPV 9.2 fl (7.5-11.1) 11/04/18 07:00 Sodium 140 mmol/L (136-145) 11/04/18 07:00 Potassium 3.6 mmol/L (3.5-5.1) 11/04/18 07:00 Chloride 105 mmol/L (98-107) 11/04/18 07:00 Carbon Dioxide 27 mmol/L (21-32) 11/04/18 07:00 Anion Gap 8 MMOL/L (8-16) 11/04/18 07:00 BUN 16 mg/dL (7-18) 11/04/18 07:00 Creatinine 1.2 mg/dL (0.55-1.3) 11/04/18 07:00 Creat Clearance w eGFR > 60 (>60) 11/04/18 07:00 Random Glucose 135 mg/dL (74-106) H 11/04/18 07:00 Calcium 9.2 mg/dL (8.5-10.1) 11/04/18 07:00 Total Bilirubin 0.7 mg/dL (0.2-1) 11/04/18 07:00 AST 40 U/L (15-37) H 11/04/18 07:00 ALT 48 U/L (13-61) 11/04/18 07:00 Alkaline Phosphatase 70 U/L (45-117) 11/04/18 07:00 Total Protein 7.2 g/dl (6.4-8.2) 11/04/18 07:00 Albumin 3.7 g/dl (3.4-5.0) 11/04/18 07:00 RPR Titer Nonreactive (NONREACTIVE) 11/04/18 07:00 HIV 1&2 Antibody Screen Negative 11/04/18 07:00 HIV P24 Antigen Negative 11/04/18 07:00 lab noted Assessment: 11/06/18 14:12 mild withdrawal sx Plan: continue detox
[2018-11-06] MEDS: THIAMINE HCL 100 MG TABLET (FP) PO SCH (22:06)
[2018-11-06] MEDS: MELATONIN 5 MG TABLETS PO PRN (22:06)
[2018-11-07] MEDS: chlordiazePOXIDE HCL 10 MG CAPSULE PO SCH (06:11)
[2018-11-07 06:35] VITALS: BP 109/73; PULSE 63; TEMP 97.7
--- NOTE | 2018-11-07 10:16 | DS ---
[facility] Detox Discharge Summary Admission Date: 11/03/18 Discharge Date: 11/07/18 - History Present History: Alcohol Dependence Additional Comments: 63 years old male admitted on 11/03/18 for alcohol withdrawal stabilization completed alcohol detox regimen aftercare [facility] - Physical Exam Results Vital Signs: Vital Signs Temperature 97.7 F 11/07/18 06:35 Pulse Rate 63 11/07/18 06:35 Respiratory Rate 18 11/07/18 06:35 Blood Pressure 109/73 11/07/18 06:35 O2 Sat by Pulse Oximetry (%) Pertinent Admission Physical Exam Findings: alcohol withdrawal sx Laboratory Last Values WBC 3.1 K/mm3 (4.0-10.0) L 11/04/18 07:00 RBC 3.62 M/mm3 (4.00-5.60) L 11/04/18 07:00 Hgb 12.8 GM/dL (11.7-16.9) 11/04/18 07:00 Hct 36.3 % (35.4-49) 11/04/18 07:00 MCV 100.2 fl (80-96) H 11/04/18 07:00 MCH 35.4 pg (25.7-33.7) H 11/04/18 07:00 MCHC 35.4 g/dl (32.0-35.9) 11/04/18 07:00 RDW 14.6 % (11.9-15.9) 11/04/18 07:00 Plt Count 191 K/MM3 (134-434) 11/04/18 07:00 MPV 9.2 fl (7.5-11.1) 11/04/18 07:00 Sodium 140 mmol/L (136-145) 11/04/18 07:00 Potassium 3.6 mmol/L (3.5-5.1) 11/04/18 07:00 Chloride 105 mmol/L (98-107) 11/04/18 07:00 Carbon Dioxide 27 mmol/L (21-32) 11/04/18 07:00 Anion Gap 8 MMOL/L (8-16) 11/04/18 07:00 BUN 16 mg/dL (7-18) 11/04/18 07:00 Creatinine 1.2 mg/dL (0.55-1.3) 11/04/18 07:00 Creat Clearance w eGFR > 60 (>60) 11/04/18 07:00 Random Glucose 135 mg/dL (74-106) H 11/04/18 07:00 Calcium 9.2 mg/dL (8.5-10.1) 11/04/18 07:00 Total Bilirubin 0.7 mg/dL (0.2-1) 11/04/18 07:00 AST 40 U/L (15-37) H 11/04/18 07:00 ALT 48 U/L (13-61) 11/04/18 07:00 Alkaline Phosphatase 70 U/L (45-117) 11/04/18 07:00 Total Protein 7.2 g/dl (6.4-8.2) 11/04/18 07:00 Albumin 3.7 g/dl (3.4-5.0) 11/04/18 07:00 RPR Titer Nonreactive (NONREACTIVE) 11/04/18 07:00 HIV 1&2 Antibody Screen Negative 11/04/18 07:00 HIV P24 Antigen Negative 11/04/18 07:00 lab noted recommend bring in medication list and lab results to primary care provider's appointment - Treatment Hospital Course: Detox Protocol Followed, Detoxed Safely, Responded well, Discharged Condition Good, Rehab Referral Accepted Patient has Accepted a Rehab Referral to: [facility] - Medication Discharge Medications: Ambulatory Orders Lisinopril 20 mg PO DAILY #14 tablet 11/07/18 - Diagnosis (1) Hypertelorism Status: Chronic (2) Weight loss Status: Acute (3) Alcohol dependence with uncomplicated withdrawal Status: Acute (4) Hepatitis C Status: Chronic Qualifiers: Viral hepatitis chronicity: chronic Hepatic coma status: without hepatic coma Qualified Code(s): B18.2 - Chronic viral hepatitis C (5) Nicotine dependence Status: Acute Qualifiers: Nicotine product type: cigarettes Substance use status: in withdrawal Qualified Code(s): F17.213 - Nicotine dependence, cigarettes, with withdrawal - AMA Did Patient Leave Against Medical Advice: No
== END 2018-11-07 08:30 | disposition home or self-care (01) | DRG 897 ==
LOC: YASAS 09:25 → Y3N 10:04
PROVIDERS: ADMIT Neuromusculoskeletal Medicine & OMM; ATTEND Neuromusculoskeletal Medicine & OMM
PROC: HZ2ZZZZ Detoxification Services for Substance Abuse Treatment (ICD-10-PCS; principal; 2018-11-03)
DX: F10.230 Alcohol dependence with withdrawal, uncomplicated (principal); F14.20 Cocaine dependence, uncomplicated; F17.213 Nicotine dependence, cigarettes, with withdrawal; B18.2 Chronic viral hepatitis C; Q75.2 Hypertelorism; Z96.642 Presence of left artificial hip joint
CPT/HCPCS: 36415; 80053; 85027; 86593; 87389

== ENCOUNTER 2019-09-25 09:50 | Inpatient (IN) | payer OTHER ==
[2019-09-25 10:21] VITALS: BMI 22.6
--- NOTE | 2019-09-25 10:46 | HP ---
"CIWA Score Nausea/Vomitin-Int. Nausea w/Dry Heave Muscle Tremors: 4-Moderate,w/Arms Extend Anxiety: 0-No Anxiety, at Ease Agitation: 0-Normal Activity Paroxysmal Sweats: 2 Orientation: 2-Disoriented Date<2 days Tacttile Disturbances: 0-None Auditory Disturbances: 0-None Visual Disturbances: 0-None Headache: 0-None Present CIWA-Ar Total Score: 12 - Admission Criteria OASAS Guidelines: Admission for Medically Managed Detox: Requires at least one of the followin. CIWA greater than 12 2. Seizures within the past 24 hours 3. Delirium tremens within the past 24 hours 4. Hallucinations within the past 24 hours 5. Acute intervention needed for co occurring medical disorder 6. Acute intervention needed for co occurring psychiatric disorder 7. Severe withdrawal that cannot be handled at a lower level of care (continued vomiting, continued diarrhea, abnormal vital signs) requiring intravenous medication and/or fluids 8. Admitting History and Physical - Smoking History Smoking history: Current every day smoker Have you smoked in the past 12 months: Yes Aproximately how many cigarettes per day: 6 - Alcohol/Substance Use Hx Alcohol Use: Yes Admission ROS [facility] Allergies/Adverse Reactions: Allergies Allergy/AdvReac Type Severity Reaction Status Date / Time No Known Allergies Allergy Verified 09/25/19 10:08 History of Present Illness: Search Terms: lucía mili, 1955 Search Date: 09/25/2019 10:42:13 AM This report was requested by: Mariaelena Carpio | Reference #: [id number] There are no results for the search terms that you entered. pt here requesting detox from etoh use , reports 1.5 pints/day since d/c from this facility , latest use this morning , went to [facility] for chest pain , EKG done , CT scan done referred to PC . cocaine 50 $ every 2 weeks, not daily use tobacco : 1 ppweek PMHX : HTN , Hep C tx 10 yrs ago interferon PSHx : left THR 2/2 OA PSych : denies SI / HI Exam Limitations: Clinical Condition - Ebola screening Have you traveled outside of the country in the last 21 days: No (N) Have you had contact with anyone from an Ebola affected area: No - Review of Systems Constitutional: Loss of Appetite EENT: reports: Other (glasses, missing teeth , some difficulty swallowing when using cocaine) Respiratory: reports: No Symptoms reported Cardiac: reports: No Symptoms Reported GI: reports: See HPI, Nausea, Poor Appetite, Vomiting : reports: No Symptoms Reported Musculoskeletal: reports: No Symptoms Reported Integumentary: reports: No Symptoms Reported Neuro: reports: Tremors Psychiatric: reports: Agitated, Disorientated Patient History - Patient Medical History Hx Anemia: No Hx Asthma: No Hx Chronic Obstructive Pulmonary Disease (COPD): No Hx Cancer: No Hx Cardiac Disorders: No Hx Congestive Heart Failure: No Hx Hypertension: Yes (TAKES LISINOPRIL ) Hx Hypercholesterolemia: Yes (NOT ON MEDICATION ) Hx Pacemaker: No HX Cerebrovascular Accident: No Hx Seizures: No Hx Dementia: No Hx Diabetes: No Hx Gastrointestinal Disorders: No Hx Liver Disease: No Hx Genitourinary Disorders: No Hx Sexually Transmitted Disorders: No Hx Renal Disease (ESRD): No Hx Thyroid Disease: No Hx Human Immunodeficiency Virus (HIV): No (last 2012) Hx Hepatitis C: Yes Hx Depression: Yes (ANXIETY ) Hx Suicide Attempt: No Hx Bipolar Disorder: No Hx Schizophrenia: No - Patient Surgical History Past Surgical History: Yes Hx Orthopedic Surgery: Yes (s/p left hip replacement in 2015) Other Surgical History: s/p surgery of right eye 2010 - PPD History Date: 02/17/18 Results: 0 - Smoking Cessation Smoking history: Current every day smoker Have you smoked in the past 12 months: Yes Aproximately how many cigarettes per day: 6 Cigars Per Day: 0 Hx Chewing Tobacco Use: No Initiated information on smoking cessation: Yes 'Breaking Loose' booklet given: 09/25/19 - Substances abused Alcohol Substance route: Oral Frequency: Daily Amount used: 1 pint of bacardi Age of first use: 13 Date of last use: 09/25/19 Cocaine Substance route: Smoking Frequency: 1-3 times last 30 days Amount used: $50 Age of first use: 16 Date of last use: 09/11/19 Admission Physical Exam [facility] - Vital Signs Vital Signs: Vital Signs - 24 hr 09/25/19 10:08 Temperature 97.3 F L Pulse Rate 62 Respiratory 20 Rate Blood Pressure 184/86 H - Physical General Appearance: Yes: Moderate Distress, Severe Distress, Tremorous, Sweating HEENTM: Yes: EOMI, Hearing grossly Normal, Normocephalic, Normal Voice, Other ( edentulous) Respiratory: Yes: Chest Non-Tender, Lungs Clear, Normal Breath Sounds, No Respiratory Distress, No Accessory Muscle Use, Other (bony prominence xyphoid process) Neck: Yes: No masses,lesions,Nodules, Trachea in good position Cardiology: Yes: Regular Rhythm, Regular Rate, S1, S2 Abdominal: Yes: Non Tender, Soft Back: Yes: Normal Inspection Musculoskeletal: Yes: Gait Steady Extremities: Yes: Normal Range of Motion, Non-Tender Neurological: Yes: Alert, Motor Strength 5/5, Normal Mood/Affect, Disoriented Integumentary: Yes: Warm - Diagnostic (1) Alcohol dependence with uncomplicated withdrawal Current Visit: Yes Status: Chronic (2) Nicotine dependence Current Visit: Yes Status: Chronic Qualifiers: Nicotine product type: cigarettes Inpatient Rehab Admission - Rehab Decision to Admit Inpatient rehab admission?: No"
[2019-09-25] MEDS ORDERED: PROCHLORPERAZINE MALEATE 5 MG TABLET PO PRN (10:49)
[2019-09-25] MEDS ORDERED: hydrOXYzine PAMOATE 25 MG CAPSULE (FP) PO PRN (10:49)
[2019-09-25] MEDS ORDERED: IBUPROFEN 400 MG TABLET (FP) PO PRN (10:49)
[2019-09-25] MEDS ORDERED: MAG HYDROX/AL HYDROX/SIMETH 30 ML UNIT-DOSE CUP PO PRN (10:49)
[2019-09-25] MEDS ORDERED: ACETAMINOPHEN 325 MG TABLET (FP) PO PRN ×2 (10:49)
[2019-09-25] MEDS ORDERED: MAGNESIUM CITRATE 300 ML BOTTLE PO PRN (10:49)
[2019-09-25] MEDS ORDERED: MENTHOL/PHENOL 1 EACH UD MM PRN (10:49)
[2019-09-25] MEDS ORDERED: MAGNESIUM HYDROX 2400MG/30ML ORAL SUSPENSION 30 ML CUP PO PRN (10:49)
[2019-09-25] MEDS ORDERED: BISMUTH SUBSALICYLATE 262 MG/15 ML BTL PO PRN (10:49)
[2019-09-25] MEDS ORDERED: chlordiazePOXIDE HCL 25 MG CAPSULE PO PRN (10:51)
[2019-09-25] MEDS: chlordiazePOXIDE HCL 25 MG CAPSULE PO SCH ×3 (11:56→22:23)
[2019-09-25] MEDS: LISINOPRIL 10 MG TABLET (FP) PO SCH (11:56)
[2019-09-25] MEDS: NICOTINE 7 MG/24 HOURS TOPICAL PATCH TD SCH (11:57)
[2019-09-25 14:06] LABS: HEMATOCRIT 38.8 % (35.4-49); HEMOGLOBIN 13.3 GM/dL (11.7-16.9); MCH 34.1 pg (25.7-33.7); MCHC 34.2 g/dl (32.0-35.9); MEAN CELL VOLUME 99.8 fl (80-96); MEAN PLT VOLUME 8.7 fl (7.5-11.1); PLATELET COUNT 240 K/MM3 (134-434); RBC 3.89 M/mm3 (4.00-5.60); RDW 14.3 % (11.9-15.9); WHITE BLOOD COUNT 3.5 K/mm3 (4.0-10.0)
[2019-09-25 14:14] LABS: ALBUMIN 4.6 g/dl (3.4-5.0); BILIRUBIN,TOTAL 0.6 mg/dL (0.2-1); BLOOD UREA NITROGEN 17.6 mg/dL (7-18); CREATININE 1.2 mg/dL (0.55-1.3); POTASSIUM 4.1 mmol/L (3.5-5.1); TOT PROT 8.5 g/dl (6.4-8.2)
[2019-09-25] MEDS: THIAMINE HCL 100 MG TABLET (FP) PO SCH (22:22)
[2019-09-26] MEDS: chlordiazePOXIDE HCL 25 MG CAPSULE PO SCH ×4 (06:38→22:05)
[2019-09-26] MEDS: PRENATAL VITAMINS W/ FOLIC ACID TABLET (FP) PO SCH (11:00)
[2019-09-26] MEDS: LISINOPRIL 10 MG TABLET (FP) PO SCH (11:00)
[2019-09-26] MEDS: NICOTINE 7 MG/24 HOURS TOPICAL PATCH TD SCH (11:01)
--- NOTE | 2019-09-26 15:08 | PN ---
[facility] CIWA - CIWA Score Nausea/Vomitin Muscle Tremors: 2 Anxiety: 2 Agitation: 0-Normal Activity Paroxysmal Sweats: 2 Orientation: 0-Oriented Tacttile Disturbances: 2-Mild Itch/Numbness/Burn Auditory Disturbances: 0-None Visual Disturbances: 0-None Headache: 0-None Present CIWA-Ar Total Score: 11 S Progress Note (SOAP) Subjective: c/o of nausea , interrupted sleep, chills Objective: 09/26/19 15:07 Vital Signs Temperature 97.9 F 09/26/19 10:00 Pulse Rate 61 09/26/19 10:00 Respiratory Rate 18 09/26/19 10:00 Blood Pressure 141/68 09/26/19 10:00 O2 Sat by Pulse Oximetry (%) Laboratory Last Values WBC 3.5 K/mm3 (4.0-10.0) L 09/25/19 12:45 RBC 3.89 M/mm3 (4.00-5.60) L 09/25/19 12:45 Hgb 13.3 GM/dL (11.7-16.9) 09/25/19 12:45 Hct 38.8 % (35.4-49) 09/25/19 12:45 MCV 99.8 fl (80-96) H 09/25/19 12:45 MCH 34.1 pg (25.7-33.7) H 09/25/19 12:45 MCHC 34.2 g/dl (32.0-35.9) 09/25/19 12:45 RDW 14.3 % (11.9-15.9) 09/25/19 12:45 Plt Count 240 K/MM3 (134-434) D 09/25/19 12:45 MPV 8.7 fl (7.5-11.1) 09/25/19 12:45 Sodium 138 mmol/L (136-145) 09/25/19 12:45 Potassium 4.1 mmol/L (3.5-5.1) 09/25/19 12:45 Chloride 101 mmol/L (98-107) 09/25/19 12:45 Carbon Dioxide 25 mmol/L (21-32) 09/25/19 12:45 Anion Gap 12 MMOL/L (8-16) 09/25/19 12:45 BUN 17.6 mg/dL (7-18) 09/25/19 12:45 Creatinine 1.2 mg/dL (0.55-1.3) 09/25/19 12:45 Est GFR (CKD-EPI)AfAm 73.62 09/25/19 12:45 Est GFR (CKD-EPI)NonAf 63.52 09/25/19 12:45 Random Glucose 70 mg/dL (74-106) L 09/25/19 12:45 Calcium 10.0 mg/dL (8.5-10.1) 09/25/19 12:45 Total Bilirubin 0.6 mg/dL (0.2-1) 09/25/19 12:45 AST 53 U/L (15-37) H 09/25/19 12:45 ALT 60 U/L (13-61) 09/25/19 12:45 Alkaline Phosphatase 97 U/L (45-117) 09/25/19 12:45 Total Protein 8.5 g/dl (6.4-8.2) H 09/25/19 12:45 Albumin 4.6 g/dl (3.4-5.0) 09/25/19 12:45 Assessment: 09/26/19 15:07 Patient AOx3 no acute distress poor dentition full ROM no gait disturbance, ambulating in the unit withdrawal sx Plan: continue detox increase PO fluids continue to monitor
[2019-09-26] MEDS: THIAMINE HCL 100 MG TABLET (FP) PO SCH (22:05)
[2019-09-26] MEDS: MELATONIN 5 MG TABLETS PO PRN (22:06)
[2019-09-27] MEDS: chlordiazePOXIDE HCL 25 MG CAPSULE PO SCH ×4 (05:34→22:30)
[2019-09-27] MEDS: LISINOPRIL 10 MG TABLET (FP) PO SCH (10:19)
[2019-09-27] MEDS: PRENATAL VITAMINS W/ FOLIC ACID TABLET (FP) PO SCH (10:19)
[2019-09-27] MEDS: NICOTINE 7 MG/24 HOURS TOPICAL PATCH TD SCH (10:19)
[2019-09-27] MEDS ORDERED: chlordiazePOXIDE HCL 25 MG CAPSULE PO PRN (14:58)
--- NOTE | 2019-09-27 15:01 | PN ---
S CIWA - CIWA Score Nausea/Vomitin-No Nausea/No Vomiting Muscle Tremors: 1-None Visible, but [place] Anxiety: 1-Mildly Anxious Agitation: 1-Slight > Activity Paroxysmal Sweats: 1-Minimal Palms Moist Orientation: 0-Oriented Tacttile Disturbances: 0-None Auditory Disturbances: 0-None Visual Disturbances: 0-None Headache: 0-None Present CIWA-Ar Total Score: 4 [facility] Progress Note (SOAP) Subjective: pt states that the librium 50 and 25mg doses are making him dizzy- would like to stay at 10mg dosing and use prn as needed O: Vital Signs - 24 hr 09/26/19 09/26/19 09/27/19 18:36 20:52 00:30 Temperature 97.3 F L 98.1 F Pulse Rate 79 75 Respiratory 16 18 18 Rate Blood Pressure 109/58 L 91/63 09/27/19 09/27/19 09/27/19 03:30 07:05 09:43 Temperature 97.7 F 97.0 F L Pulse Rate 67 68 Respiratory 18 18 16 Rate Blood Pressure 117/77 132/73 09/27/19 14:00 Temperature 97.5 F L Pulse Rate 65 Respiratory 18 Rate Blood Pressure 104/63 Laboratory Tests 09/25/19 09/25/19 12:45 12:45 WBC 3.5 L RBC 3.89 L Hgb 13.3 Hct 38.8 MCV 99.8 H MCH 34.1 H MCHC 34.2 RDW 14.3 Plt Count 240 D MPV 8.7 Sodium 138 Potassium 4.1 Chloride 101 Carbon Dioxide 25 Anion Gap 12 BUN 17.6 Creatinine 1.2 Est GFR (CKD-EPI)AfAm 73.62 Est GFR (CKD-EPI)NonAf 63.52 Random Glucose 70 L Calcium 10.0 Total Bilirubin 0.6 AST 53 H ALT 60 Alkaline Phosphatase 97 Total Protein 8.5 H Albumin 4.6 a/p: continue alcohol detox protocol with librium- lowered dose of librium per pt preference
[2019-09-27] MEDS: THIAMINE HCL 100 MG TABLET (FP) PO SCH (22:30)
[2019-09-27] MEDS: MELATONIN 5 MG TABLETS PO PRN (22:32)
[2019-09-28] MEDS ORDERED: chlordiazePOXIDE HCL 10 MG CAPSULE PO PRN
[2019-09-28] MEDS: chlordiazePOXIDE HCL 10 MG CAPSULE PO SCH ×3 (05:55→17:31)
[2019-09-28] MEDS: NICOTINE 7 MG/24 HOURS TOPICAL PATCH TD SCH (10:20)
[2019-09-28] MEDS: PRENATAL VITAMINS W/ FOLIC ACID TABLET (FP) PO SCH (10:21)
[2019-09-28] MEDS: LISINOPRIL 10 MG TABLET (FP) PO SCH (10:21)
--- NOTE | 2019-09-28 11:33 | PN ---
S CIWA - CIWA Score Nausea/Vomitin-No Nausea/No Vomiting Muscle Tremors: None Anxiety: 2 Agitation: 0-Normal Activity Paroxysmal Sweats: 2 Orientation: 0-Oriented Tacttile Disturbances: 0-None Auditory Disturbances: 0-None Visual Disturbances: 0-None Headache: 2-Mild CIWA-Ar Total Score: 6 [facility] Progress Note (SOAP) Subjective: c/o anxiety, headache, and sweats. Objective: 09/28/19 11:32 Vital Signs 09/28/19 09/28/19 05:56 09:55 Temperature 96.4 F L 97 F L Pulse Rate 61 74 Respiratory 18 16 Rate Blood Pressure 125/73 121/79 Laboratory Last Values WBC 3.5 K/mm3 (4.0-10.0) L 09/25/19 12:45 RBC 3.89 M/mm3 (4.00-5.60) L 09/25/19 12:45 Hgb 13.3 GM/dL (11.7-16.9) 09/25/19 12:45 Hct 38.8 % (35.4-49) 09/25/19 12:45 MCV 99.8 fl (80-96) H 09/25/19 12:45 MCH 34.1 pg (25.7-33.7) H 09/25/19 12:45 MCHC 34.2 g/dl (32.0-35.9) 09/25/19 12:45 RDW 14.3 % (11.9-15.9) 09/25/19 12:45 Plt Count 240 K/MM3 (134-434) D 09/25/19 12:45 MPV 8.7 fl (7.5-11.1) 09/25/19 12:45 Sodium 138 mmol/L (136-145) 09/25/19 12:45 Potassium 4.1 mmol/L (3.5-5.1) 09/25/19 12:45 Chloride 101 mmol/L (98-107) 09/25/19 12:45 Carbon Dioxide 25 mmol/L (21-32) 09/25/19 12:45 Anion Gap 12 MMOL/L (8-16) 09/25/19 12:45 BUN 17.6 mg/dL (7-18) 09/25/19 12:45 Creatinine 1.2 mg/dL (0.55-1.3) 09/25/19 12:45 Est GFR (CKD-EPI)AfAm 73.62 09/25/19 12:45 Est GFR (CKD-EPI)NonAf 63.52 09/25/19 12:45 Random Glucose 70 mg/dL (74-106) L 09/25/19 12:45 Calcium 10.0 mg/dL (8.5-10.1) 09/25/19 12:45 Total Bilirubin 0.6 mg/dL (0.2-1) 09/25/19 12:45 AST 53 U/L (15-37) H 09/25/19 12:45 ALT 60 U/L (13-61) 09/25/19 12:45 Alkaline Phosphatase 97 U/L (45-117) 09/25/19 12:45 Total Protein 8.5 g/dl (6.4-8.2) H 09/25/19 12:45 Albumin 4.6 g/dl (3.4-5.0) 09/25/19 12:45 Labs noted. Assessment: 09/28/19 11:32 AOX3, in no acute respiratory distress. Full ROM, ambulating in the unit. Withdrawal symptoms Plan: continue detox.
[2019-09-28 17:41] VITALS: BP 132/79; PULSE 72; TEMP 97.7
--- NOTE | 2019-09-28 19:19 | PN ---
[facility] Progress Note Note: patient did not want to complete treatment ,all attempts to convince patient to stay with no avail, high risks of relapsing explained,patient understood,seen by counselor, patient signed release ama,advise to call 911 if not feeling well,metrocard given by counselor,stated he will go home and stay with his family
--- NOTE | 2019-09-28 19:48 | DS ---
[facility] Detox Discharge Summary Admission Date: 09/25/19 Discharge Date: 09/28/19 - History Present History: Alcohol Dependence Pertinent Past History: nicotine dependence - Physical Exam Results Vital Signs: Vital Signs Temperature 97.7 F 09/28/19 17:40 Pulse Rate 72 09/28/19 17:40 Respiratory Rate 18 09/28/19 17:40 Blood Pressure 132/79 09/28/19 17:40 O2 Sat by Pulse Oximetry (%) - Medication Discharge Medications: Ambulatory Orders Lisinopril 20 mg PO DAILY #14 tablet 11/07/18
--- NOTE | 2019-09-28 19:52 | DS ---
[facility] Detox Discharge Summary Admission Date: 09/25/19 Discharge Date: 09/28/19 - History Present History: Alcohol Dependence Additional Comments: patient signed release ama Pertinent Past History: nicotine dependence hepatitis c treated s/p left hip replacement - Physical Exam Results Vital Signs: Vital Signs Temperature 97.7 F 09/28/19 17:40 Pulse Rate 72 09/28/19 17:40 Respiratory Rate 18 09/28/19 17:40 Blood Pressure 132/79 09/28/19 17:40 O2 Sat by Pulse Oximetry (%) Pertinent Admission Physical Exam Findings: withdrawal signs and symptom Laboratory Last Values WBC 3.5 K/mm3 (4.0-10.0) L 09/25/19 12:45 RBC 3.89 M/mm3 (4.00-5.60) L 09/25/19 12:45 Hgb 13.3 GM/dL (11.7-16.9) 09/25/19 12:45 Hct 38.8 % (35.4-49) 09/25/19 12:45 MCV 99.8 fl (80-96) H 09/25/19 12:45 MCH 34.1 pg (25.7-33.7) H 09/25/19 12:45 MCHC 34.2 g/dl (32.0-35.9) 09/25/19 12:45 RDW 14.3 % (11.9-15.9) 09/25/19 12:45 Plt Count 240 K/MM3 (134-434) D 09/25/19 12:45 MPV 8.7 fl (7.5-11.1) 09/25/19 12:45 Sodium 138 mmol/L (136-145) 09/25/19 12:45 Potassium 4.1 mmol/L (3.5-5.1) 09/25/19 12:45 Chloride 101 mmol/L (98-107) 09/25/19 12:45 Carbon Dioxide 25 mmol/L (21-32) 09/25/19 12:45 Anion Gap 12 MMOL/L (8-16) 09/25/19 12:45 BUN 17.6 mg/dL (7-18) 09/25/19 12:45 Creatinine 1.2 mg/dL (0.55-1.3) 09/25/19 12:45 Est GFR (CKD-EPI)AfAm 73.62 09/25/19 12:45 Est GFR (CKD-EPI)NonAf 63.52 09/25/19 12:45 Random Glucose 70 mg/dL (74-106) L 09/25/19 12:45 Calcium 10.0 mg/dL (8.5-10.1) 09/25/19 12:45 Total Bilirubin 0.6 mg/dL (0.2-1) 09/25/19 12:45 AST 53 U/L (15-37) H 09/25/19 12:45 ALT 60 U/L (13-61) 09/25/19 12:45 Alkaline Phosphatase 97 U/L (45-117) 09/25/19 12:45 Total Protein 8.5 g/dl (6.4-8.2) H 09/25/19 12:45 Albumin 4.6 g/dl (3.4-5.0) 09/25/19 12:45 - Medication Discharge Medications: Ambulatory Orders Lisinopril 20 mg PO DAILY #14 tablet 11/07/18 - Diagnosis (1) Alcohol dependence with uncomplicated withdrawal Current Visit: Yes Status: Chronic (2) Nicotine dependence Current Visit: Yes Status: Chronic Qualifiers: Nicotine product type: cigarettes (3) Status post left hip replacement Current Visit: No Status: Acute (4) Weight loss Current Visit: No Status: Acute (5) Hepatitis C Current Visit: No Status: Chronic Qualifiers: Viral hepatitis chronicity: chronic Hepatic coma status: without hepatic coma Qualified Code(s): B18.2 - Chronic viral hepatitis C - AMA Did Patient Leave Against Medical Advice: Yes
[2019-09-29] MEDS ORDERED: chlordiazePOXIDE HCL 10 MG CAPSULE PO SCH (05:00)
[2019-09-30] MEDS ORDERED: chlordiazePOXIDE HCL 10 MG CAPSULE PO ONE (05:00)
== END 2019-09-28 19:45 | disposition left against medical advice (07) | DRG 894 ==
LOC: YASAS 09:50 → Y6N 11:00
PROVIDERS: ADMIT Allergy & Immunology; ATTEND Allergy & Immunology
PROC: HZ2ZZZZ Detoxification Services for Substance Abuse Treatment (ICD-10-PCS; principal; 2019-09-25)
DX: F10.230 Alcohol dependence with withdrawal, uncomplicated (principal); F17.210 Nicotine dependence, cigarettes, uncomplicated; I10 Essential (primary) hypertension; B18.2 Chronic viral hepatitis C; R63.4 Abnormal weight loss; K08.9 Disorder of teeth and supporting structures, unspecified; Z96.642 Presence of left artificial hip joint
CPT/HCPCS: 36415; 80053; 85027